=== PATIENT | female | born 1970 | race Two or more races ===

== ENCOUNTER 2017-09-15 08:48 | Emergency (ER) | payer MEDICAID ==
[~2017-09-15] VITALS: Ht 162.6 cm; Wt 72.6 kg
[2017-09-15 09:13] VITALS: BP 149/83
== END 2017-09-15 09:40 | disposition home or self-care (01) ==
LOC: ER 08:48
DX: H66.92 Otitis media, unspecified, left ear (principal); J02.8 Acute pharyngitis due to other specified organisms; B97.89 Other viral agents as the cause of diseases classified elsewhere; Z88.8 Allergy status to other drugs, medicaments and biological substances

== ENCOUNTER 2019-02-22 19:33 | Emergency (ER) | payer MEDICAID ==
[~2019-02-22] VITALS: Ht 162.6 cm; Wt 77.1 kg
[2019-02-22] MEDS ORDERED: ACETAMINOPHEN/CODEINE#3 (300/30mg) TAB PO ONE (21:45)
[2019-02-22] MEDS ORDERED: cefTRIAXone SOD 1,000 MG VL IM ONE (21:45)
[2019-02-22] MEDS ORDERED: DexAMETHasone SOD PHOS 10MG/1ML VIAL INJ IM ONE (21:45)
[2019-02-22 21:55] VITALS: BP 108/72
== END 2019-02-22 22:50 | disposition home or self-care (01) ==
LOC: ER 19:33
DX: H66.90 Otitis media, unspecified, unspecified ear (principal); J06.9 Acute upper respiratory infection, unspecified; Z88.8 Allergy status to other drugs, medicaments and biological substances
CPT/HCPCS: 96372; 99283; J0696; J1100

== ENCOUNTER 2022-02-04 20:42 | Emergency (ER) | payer MEDICAID ==
[~2022-02-04] VITALS: Ht 162.6 cm; Wt 79.4 kg
[~2022-02-04 20:42] MED LIST: AMOX-277 PO; IBUP600T27 PO
[2022-02-04] MEDS ORDERED: IBUPROFEN 600 MG TAB PO ONE (22:00)
[2022-02-04 22:30] VITALS: BP 153/72
== END 2022-02-04 22:54 | disposition home or self-care (01) ==
LOC: ER 20:45
DX: H92.03 Otalgia, bilateral (principal); J02.9 Acute pharyngitis, unspecified

== ENCOUNTER 2023-03-10 19:03 | Emergency (ER) | payer MEDICAID ==
[~2023-03-10] VITALS: Ht 162.6 cm; Wt 78.8 kg
[2023-03-10 19:25] VITALS: BP 128/61
[2023-03-10 20:22] LABS: Urine Bacteria NONE SEEN /hpf (None Seen); Urine Blood 2+ /uL (Negative); Urine WBC 169 /hpf (0 - 5); Urine WBC Clumps PRESENT /hpf (None Seen)
[2023-03-10] MEDS ORDERED: HYDR-3682 PO (20:51)
[2023-03-10] MEDS ORDERED: NITR-87 PO (20:51)
[2023-03-10] MEDS ORDERED: hydrOXYzine 25 MG TAB or CAP PO ONE (21:00)
== END 2023-03-10 21:10 | disposition home or self-care (01) ==
LOC: ER 19:03
DX: N39.0 Urinary tract infection, site not specified (principal); F41.9 Anxiety disorder, unspecified; Z79.2 Long term (current) use of antibiotics; Z79.1 Long term (current) use of non-steroidal anti-inflammatories (NSAID); Z79.899 Other long term (current) drug therapy; Z88.8 Allergy status to other drugs, medicaments and biological substances
CPT/HCPCS: 81001

== ENCOUNTER 2023-06-27 12:53 | Emergency (ER) | payer MEDICAID ==
[~2023-06-27] VITALS: Ht 162.6 cm; Wt 81.6 kg
[~2023-06-27 12:53] MED LIST changes: -AMOX-277 PO; +AMOX875T4 PO; +HYDR-3682 PO; +IBUP-1454 PO; -IBUP600T27 PO; +NITR-87 PO
[2023-06-27 15:20] VITALS: BP 126/56; PULSE 85; RESP 16; TEMP 97.5; O2SAT 97
[2023-06-27] MEDS ORDERED: DexAMETHasone SOD PHOS 10MG/1ML VIAL INJ IM ONE (15:30)
[2023-06-27] MEDS ORDERED: BENZ100C97 PO (15:45)
[2023-06-27] MEDS ORDERED: PSEU120T2 PO (15:45)
[2023-06-27] MEDS ORDERED: IBUP-1454 PO (15:45)
[2023-06-27] MEDS ORDERED: AUG875T PO (15:45)
== END 2023-06-27 16:02 | disposition home or self-care (01) ==
LOC: ER 12:53
DX: J35.8 Other chronic diseases of tonsils and adenoids (principal)
CPT/HCPCS: 96372; 99283; J1100

== ENCOUNTER 2023-08-27 12:53 | Emergency (ER) | payer MEDICAID ==
[~2023-08-27] VITALS: Ht 162.6 cm; Wt 82.4 kg
[~2023-08-27 12:53] MED LIST changes: +AUG875T PO; +BENZ100C97 PO; +PSEU120T2 PO
[2023-08-27] MEDS ORDERED: KETOROLAC TROMETH 60MG/2ML VIAL IM ONE (14:45)
[2023-08-27] MEDS ORDERED: cefTRIAXone SOD 1,000 MG VL IM ONE (15:00)
[2023-08-27] MEDS ORDERED: PRED20TA2 PO (15:18)
[2023-08-27] MEDS ORDERED: LIDO2SOL26 MT (15:18)
[2023-08-27] MEDS ORDERED: CEPH500C PO (15:18)
[2023-08-27 15:19] VITALS: BP 155/80; PULSE 77; RESP 18; TEMP 97.7; O2SAT 99
== END 2023-08-27 15:25 | disposition home or self-care (01) ==
LOC: ER 12:53
DX: J03.90 Acute tonsillitis, unspecified (principal); J01.90 Acute sinusitis, unspecified; H92.02 Otalgia, left ear; Z88.6 Allergy status to analgesic agent
CPT/HCPCS: 96372; 99283; J0696

== ENCOUNTER 2023-11-28 19:45 | Emergency (ER) | payer MEDICAID ==
[~2023-11-28] VITALS: Ht 162.6 cm; Wt 79.5 kg
[~2023-11-28 19:45] MED LIST changes: +CEPH500C PO; +LIDO2SOL26 MT; +PRED20TA2 PO
[2023-11-28] MEDS ORDERED: cefTRIAXone SOD 1,000 MG VL IM ONE (21:15)
[2023-11-28] MEDS ORDERED: TETANUS-DIPTH-ACEL PERTUSSIS 0.5ML SYR Tdap IM ONE (21:15)
[2023-11-28] MEDS ORDERED: ACET500T58 PO (21:24)
[2023-11-28] MEDS ORDERED: CLIN300C70 PO (21:24)
[2023-11-28] MEDS ORDERED: CEPH500C PO (21:24)
[2023-11-28] MEDS ORDERED: LIDOCAINE 1% HCL (LOCAL ANESTH.) INJ 20ML MDV ID ONE (22:45)
[2023-11-28] MEDS ORDERED: BACITRACIN TOP OINT 1 UD PKG TOP ONE (22:45)
[2023-11-28 23:24] VITALS: BP 140/79; PULSE 80; RESP 18; TEMP 98.5; O2SAT 99
== END 2023-11-28 23:22 | disposition home or self-care (01) ==
LOC: ER 19:45
DX: S41.012A Laceration without foreign body of left shoulder, initial encounter (principal); F41.9 Anxiety disorder, unspecified; M19.90 Unspecified osteoarthritis, unspecified site; Z88.8 Allergy status to other drugs, medicaments and biological substances; Z79.899 Other long term (current) drug therapy; X58.XXXA Exposure to other specified factors, initial encounter; Y93.89 Activity, other specified; Y92.89 Other specified places as the place of occurrence of the external cause; Y99.8 Other external cause status
CPT/HCPCS: 12002; 90471; 90715; 96372; 99284; J0696; J2001

== ENCOUNTER 2024-01-15 23:50 | Emergency (ER) | payer MEDICAID ==
[~2024-01-15] VITALS: Ht 162.6 cm; Wt 79.5 kg
[~2024-01-15 23:50] MED LIST changes: +ACET500T58 PO; +CLIN300C70 PO
[2024-01-16 01:24] LABS: Urine Bacteria FEW /hpf (None Seen); Urine Blood 2+ /uL (Negative); Urine Clarity HAZY (Clear); Urine Color Colorless (Yellow); Urine Protein, UAD 1+ (Negative); Urine Specific Gravity 1.013 (1.001-1.035); Urine Urobilinogen Normal (Negative); Urine WBC 444 /hpf (0 - 5); Urine WBC Clumps PRESENT /hpf (None Seen)
[2024-01-16 01:31] LABS: Amphetamine Screen, Urine Neg (NEGATIVE); Barbiturate Scree,Urine Neg (NEGATIVE); Benzodiazephine Screen, Urine Neg (NEGATIVE); Cannabinoid Screen, Urine Neg (NEGATIVE); Cocaine Screen, Urine Neg (NEGATIVE); Opiate Scree,Urine Neg (NEGATIVE); Phencyclidine Screen, Urine Neg (NEGATIVE)
[2024-01-16 01:41] LABS: Basophils # (auto) 0.1 10 ^3/uL (0-0.2); Basophils % (auto) 0.6 % (0.0-2.0); Eosinophils # (auto) 0 10 ^3/uL (0-0.8); Eosinophils % (auto) 0.2 % (0.0-7.0); Hematocrit 39.6 % (36.0-46.0); Lymphocytes # (auto) 2.8 10 ^3/uL (0.4-5.4); Lymphocytes % (auto) 24.2 % (10.0-50.0); Mean Corpuscular Hemoglobin 29.8 pg (28.0-32.0); Mean Corpuscular Hgb Conc. 32.8 g/dL (32.0-36.0); Mean Corpuscular Volume 90.8 fL (80.0-100.0); Monocytes # (auto) 0.9 10 ^3/uL (0-1.3); Monocytes % (auto) 7.7 % (0.0-12.0); Neutrophils # (auto) 7.9 10 ^3/uL (1.6-8.6); Neutrophils % (auto) 67.3 % (37.0-80.0); Red Blood Cells 4.36 10^6/uL (4.0-5.20); Red Cell Distribution Width 13.3 % (11.8-14.3); White Blood Cell 11.7 10^3/uL (4.4-10.8)
[2024-01-16 01:54] LABS: Alanine Aminotransferase 15 U/L (7-40); Albumin 4.2 g/dL (3.2-4.8); Alkaline Phosphatase 109 U/L (46-116); Anion Gap 7 (5-15); Aspartate Aminotransferase 11 U/L (13-40); BUN/Creatinine Ratio 14.8 (10.0-20.0); Blood Urea Nitrogen 17 mg/dL (9-23); Calcium 9.7 mg/dL (8.7-10.4); Carbon Dioxide 23 mmol/L (20-30); Chloride 109 mmol/L (98-107); Glucose 101 mg/dL (74-106); Potassium 3.6 mmol/L (3.5-5.1); Sodium 139 mmol/L (136-145)
[2024-01-16 01:55] LABS: Bilirubin, Total 0.7 mg/dL (0.2-1.0); Total Protein 7.1 g/dL (5.7-8.2)
[2024-01-16] MEDS ORDERED: CEPH500T PO (04:00)
[2024-01-16] MEDS ORDERED: ACET-1304 PO (04:00)
[2024-01-16] MEDS ORDERED: PHEN95TA10 PO (04:00)
[2024-01-16] MEDS: CEPHALEXIN 250 MG CAP PO ONE (04:17)
[2024-01-16] MEDS: PHENAZOPYRIDINE HCL 100 MG TAB PO ONE (04:18)
[2024-01-16] MEDS: ACETAMINOPHEN 500 MG TAB PO ONE (04:18)
[2024-01-16 04:19] VITALS: BP 145/72; TEMP 98
[2024-01-16 04:27] VITALS: PULSE 88; RESP 16; O2SAT 98
== END 2024-01-16 04:30 | disposition home or self-care (01) ==
LOC: ER 23:50
DX: F41.9 Anxiety disorder, unspecified (principal); N39.0 Urinary tract infection, site not specified; Z88.1 Allergy status to other antibiotic agents; Z79.899 Other long term (current) drug therapy
CPT/HCPCS: 36415; 70450; 74176; 80053; 80307; 81001; 84484; 85025

== ENCOUNTER 2024-04-13 22:17 | Emergency (ER) | payer MEDICAID ==
[~2024-04-13] VITALS: Ht 162.6 cm; Wt 79.5 kg
[~2024-04-13 22:17] MED LIST changes: +ACET-1304 PO; +CEPH500T PO; +CLIN1CAP70 PO; -CLIN300C70 PO; +PHEN95TA10 PO
[2024-04-14] MEDS ORDERED: METH-1182 PO (04:07)
[2024-04-14] MEDS: CYCLOBENZAPRINE HCL 10 MG TAB PO ONE (04:26)
[2024-04-14] MEDS: KETOROLAC TROMETH 60MG/2ML VIAL IM ONE (04:26)
[2024-04-14 04:34] VITALS: BP 158/66; PULSE 77; RESP 18; TEMP 98.6; O2SAT 98
== END 2024-04-14 04:36 | disposition home or self-care (01) ==
LOC: ER 22:17
DX: M54.42 Lumbago with sciatica, left side (principal); F41.9 Anxiety disorder, unspecified; M19.90 Unspecified osteoarthritis, unspecified site; Z88.8 Allergy status to other drugs, medicaments and biological substances; Z79.899 Other long term (current) drug therapy
CPT/HCPCS: 96372; 99283; J1885

== ENCOUNTER 2024-10-17 13:31 | Emergency (ER) | payer MEDICAID ==
[~2024-10-17] VITALS: Ht 162.6 cm; Wt 77.0 kg
[~2024-10-17 13:31] MED LIST changes: +BACL10TA PO; +CYCL-837 PO; +METH-1182 PO; +METH4PAK PO; +SUMA50TA2 PO
[2024-10-17 14:21] VITALS: BP 141/79; PULSE 66; RESP 18; TEMP 98; O2SAT 99
[2024-10-17] MEDS ORDERED: CARB100C3 PO (16:21)
--- NOTE | 2024-10-17 16:21 | ED.PDOC ---
History of Present Illness HPI Comments 53-year-old female complaining right-sided facial pain. Patient states the pain has been intermittent for the last six months. Was seen one month ago. States Toradol does help. She called primary care doctor has been seen, states her neurology appointment is not until December. States the sumatriptan and the muscle relaxer she was given last month did not help with pain. Patient reports the pain is sharp and electric in nature on the right side face. Chief Complaint: Face pain Time Seen by MD: 14:06 Primary Care Provider: unknown Reviewed Notes: Nurses Notes Allergies: Coded Allergies: Azithromycin (Verified Allergy, Intermediate, 11/28/23) Naproxen (Verified Allergy, Unknown, 09/15/17) Home Meds Active Scripts Baclofen (Baclofen) 10 Mg Tab, 10 MG PO BID, #20 TAB Prov:REJI JEFFERS 09/28/24 Sumatriptan Succinate (Imitrex) 50 Mg Tab, 1 TAB PO BID, #20 TAB Prov:REJI JEFFERS 09/28/24 Methylprednisolone (Medrol Dosepak) 4 Mg Pacheco, 4 MG PO UD, #21 TAB 0 Refills UAD Prov:SCARLETT COMBS 06/18/24 Cyclobenzaprine Hcl (Cyclobenzaprine Hcl) 5 Mg Tab, 1 TAB PO QHSP PRN, #14 TAB 0 Refills Prov:SCARLETT COMBS 06/18/24 Methocarbamol (Methocarbamol) 750 Mg Tab, 1500 MG PO QID for 30 Days, #240 TAB Prov:CEASAR SALCEDO [facility] 04/14/24 Acetaminophen (Tylenol Extra Strength) 500 Mg Tab, 500 MG PO QIDPRN for 10 Days, #40 TAB Prov:MINE MORAN DO 01/16/24 Phenazopyridine Hcl (Azo Tabs) 95 Mg Tab, 95 MG PO QIDPRN for 3 Days, #12 TAB Prov:MINE MORAN DO 01/16/24 Cephalexin Monohydrate (Cephalexin) 500 Mg Tab, 1 TAB PO TID for 7 Days, #21 TAB Prov:MINE MORAN DO 01/16/24 Clindamycin Hcl (Clindamycin Hcl) 300 Mg Cap, 1 CAP PO TID for 7 Days, #21 CAP 0 Refills Prov:SCARLETT COMBS 11/28/23 Cephalexin Monohydrate (Cephalexin) 500 Mg Cap, 1 CAP PO BID for 7 Days, #14 CAP 0 Refills Prov:SCARLETT COMBS 11/28/23 Acetaminophen (Acetaminophen) 500 Mg Tab, 500 MG PO Q4HPRN, #30 TAB 0 Refills Prov:SCARLETT COMBS 11/28/23 Lidocaine HCl (Mouth-Throat) (Lidocaine HCl Viscous) 2 % Amparo, 5 ML MT TID, #100 ML Prov:REJI JEFFERS 08/27/23 Prednisone (Prednisone) 20 Mg Tab, 60 MG PO DAILY, #18 MG Prov:REJI JEFFERS 08/27/23 Cephalexin Monohydrate (Cephalexin) 500 Mg Cap, 1 CAP PO QID, #40 CAP Prov:REJI JEFFERS 08/27/23 Ibuprofen (Ibuprofen) 600 Mg Tab, 600 MG PO TID for 10 Days, #30 TAB 0 Refills Prov:SUMEET ESTRADA NP 06/27/23 Pseudoephedrine (Sudafed 12 Hour) 120 Mg Tab, 1 TAB PO BID for 10 Days, #20 TAB 0 Refills Prov:SUMEET ESTRADA NP 06/27/23 Benzonatate (Benzonatate) 100 Mg Cap, 1 CAP PO TID for 10 Days, #30 CAP 0 Refills Prov:SUMEET ESTRADA [employer]NER 06/27/23 Amoxicillin & Pot Clavulanate (AUGMENTIN TABLET) 875 Mg Tb, 875 MG PO BID for 10 Days, #20 TAB 0 Refills Prov:SUMEET ESTRADA NP 06/27/23 Nitrofurantoin Monohydrate Mac (Macrobid) 100 Mg Cap, 100 MG PO BID for 7 Days, #14 CAP 0 Refills Prov:JACQUE MOON 03/10/23 Hydroxyzine Hcl (Hydroxyzine Hcl) 25 Mg Tab, 1 TAB PO PRN PRN, #30 TAB 0 Refills Prov:JACQUE MOON 03/10/23 Ibuprofen (Ibuprofen) 600 Mg Tab, 600 MG PO TID, #30 TAB Prov:REJI JEFFERS 01/22/22 Amoxicillin & Pot Clavulanate (Amoxicillin/Potassium Cla) 875 Mg Tab, 875 MG PO BID, #20 TAB Prov:EZYADREJI BLAS 01/22/22 Information Source: Patient Mode of Arrival: Ambulatory Past Medical History PAST MEDICAL HISTORY: Anxiety, Arthritis, Thyroid Surgical History: Denies all surgeries [employer]ATOR History: 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 Family History Family History: Reviewed,noncontributory to illness Social History Smoker: Non-Smoker Alcohol: Denies ETOH Use Drugs: Denies Drug Use Lives In: Home Constitutional: denies: chills, diaphoresis, fatigue, fever, malaise, sweats, weakness, others EENTM: denies: blurred vision, double vision, ear bleeding, ear discharge, ear drainage, ear pain, ear ringing, eye pain, eye redness, hearing loss, mouth pain, mouth swelling, nasal discharge, nose bleeding, nose congestion, nose pain, photophobia, tearing, throat pain, throat swelling, voice changes, others Respiratory: denies: cough, hemoptysis, orthopnea, SOB at rest, shortness of breath, SOB with excertion, stridor, wheezing, others Cardiovascular: denies: chest pain, dizzy spells, diaphoresis, Dyspnea on exertion, edema, irregular heart beat, left arm pain, lightheadedness, palpitations, PND, syncope, others Gastrointestinal: denies: abdomen distended, abdominal pain, blood streaked bowels, constipated, diarrhea, dysphagia, difficulty swallowing, hematemesis, melena, nausea, poor appetite, poor fluid intake, rectal bleeding, rectal pain, vomiting, others Genitourinary: denies: abnormal vagina bleeding, burning, dyspareunia, dysuria, flank pain, frequency, hematuria, incontinence, pain, , vagina discha rge, urgency, others Neurological: reports: headache; denies: dizziness, fainting, left sided numbness, left sided weakness, numbness, paresthesia, pre-existing deficit, right sided numbness, right sided weakness, seizure, speech problems, tingling, tremors, weakness, others Musculoskeletal: denies: back pain, gout, joint pain, joint swelling, muscle pain, muscle stiffness, neck pain, others Integumetry: denies: bruises, change in color, change in hair/nails, dryness, laceration, lesions, lumps, rash, wounds, others Allergic/Immunocompromised: denies: Difficulty Healing, Frequent Infections, Hives, Itching, others Physical Exam General Appearance: No Apparent Distress, Normal HEENT: Normal ENT Inspection, Pharynx Normal, TMs Normal Neck: Full Range of Motion, Non-Tender, Normal, Normal Inspection Respiratory: Chest Non-Tender, Lungs Clear, No Accessory Muscle Use, No Respiratory Distress, Normal Breath Sounds Cardiovascular: No Edema, No JVD, No Murmur, No Gallop, Normal Peripheral Pulses, Regular Rate/Rhythm Breast Exam: Deferred Gastrointestinal: No Organomegaly, Non Tender, No Pulsatile Mass, Normal Bowel Sounds, Soft Genitalia: Deferred Pelvic: Deferred Rectal: Deferred Extremities: No calf tenderness, Normal capillary refill, Normal inspection, Normal range of motion, Non-tender, No pedal edema Musculoskeletal : Apperance: Normal Neurologic: Alert, captain cannery tender II-XII nml as Tested, No Motor Deficits, Normal Affect, Normal Mood, No Sensory Deficits Cerebellar Function: Normal Reflexes: Normal Skin: Dry, Normal Color, Warm Lymphatic: No Adenopathy Was a procedure done? Was a procedure done?: No Differential Dx Considerations may include: Giant cell arteritis, trigeminal neuralgia, migraine, subarachnoid bleed, CVA, TIA X-Ray, Labs, Meds, VS Vital Signs Date Time Temp Pulse Resp B/P (MAP) Pulse Ox O2 Delivery O2 Flow Rate FiO2 10/17/24 14:21 98.0 66 18 141/79 (99) 99 98.0 10/17/24 14:21 66 18 99 Room Air 10/17/24 13:51 98.0 66 18 141/79 (99) 99 X-Ray, Labs, Meds, VS Comment Imaging: X-rays and CT scans were reviewed and interpreted by this provider, imaging shows no fractures and no pathological disease. Pending radiology review. Laboratory: Labs reviewed and interpreted by this provider. No significant abnormalities noted. Patient has prior medical visits reviewed. Med reconciliation performed Vital signs reviewed Time of 1ST Reevaluation: 16:21 Reevaluation 1ST: Improved Patient Education/Counseling: Diagnosis, Treatment, Need For Follow Up (Patient advised to follow-up in the emergency room in the next 24 to 48 hours if symptoms do not improve. Advised follow-up with PCP in the next 3 to 5 days. Patient verbalized understanding. ) Family Education/Counseling: Diagnosis, Treatment Departure 1 Departure Time of Disposition: 16:15 Impression: Primary Impression: Trigeminal neuralgia of right side of face Disposition: 01 HOME / SELF CARE / HOMELESS Condition: Fair e-Prescriptions Carbamazepine (Carbamazepine) 100 Mg Chw 100 MG PO BID for 20 Days, #40 TAB.CHEW Prov: ALEXANDER MARROQUIN 10/17/24 Discharged With: Self Critical Care Note Critical Care Time?: No Stability Stability form required: No Heart Score Heart Score: Heart Score Response (Comments) Value History N/A 0 EKG N/A 0 Age N/A 0 Risk Factors N/A 0 Troponin N/A 0 Total 0 ALEXANDER MARROQUIN Oct 17, 2024 16:21
[2024-10-17] MEDS: KETOROLAC TROMETH 60MG/2ML VIAL IM ONE (16:36)
== END 2024-10-17 16:57 | disposition home or self-care (01) ==
LOC: ER 13:31
DX: G50.0 Trigeminal neuralgia (principal); F41.9 Anxiety disorder, unspecified; M19.90 Unspecified osteoarthritis, unspecified site; Z79.1 Long term (current) use of non-steroidal anti-inflammatories (NSAID); Z79.52 Long term (current) use of systemic steroids; Z88.1 Allergy status to other antibiotic agents; Z88.6 Allergy status to analgesic agent
CPT/HCPCS: 96372; 99283; J1885